=== PATIENT | male | born 1935 | race Two or more races ===

== ENCOUNTER 2020-02-01 06:14 | Emergency (ER) | payer MEDICARE, OTHER ==
[~2020-02-01] VITALS: Ht 170.2 cm; Wt 69.9 kg
--- NOTE | 2020-02-01 06:17 | NUR ---
PT BIB [facility] FROM THE [facility] WITH A C/O LT ELBOW LACERATION S/P TRIP AND FALL. PT DOESN'T REMEMBER WHAT HAPPENED, BUT STATED THAT HE TRIPPED AND FELL. PT HAS APPROX 4.5"/10CM LACERATION ON THE LT ELBOW. SLIGHT BLEEDING NOTED. AREA WRAPPED WITH GAUZE BY RESCUE. PT DOES NOT APPEAR TO HAVE HIT HIS HEAD. DR GREEN IS AT THE BEDSIDE. PT WAS PLACED ON THE MONITOR AND POX.
[2020-02-01] MEDS ORDERED: LIDOCAINE HCL/MPF 1% 30 ML VIAL IJ ONE (06:23)
[2020-02-01] MEDS ORDERED: LIDOCAINE 1%-EPI 1:100,000 20 ML VIAL ONE (06:26)
[2020-02-01] MEDS ORDERED: TDAP [DIPH/PERTUSSIS/TET] 0.5 ML VIAL IM ONE (06:27)
[2020-02-01] MEDS: LIDOCAINE 1%-EPI 1:100,000 50 ML VIAL IJ ONE (06:27)
[2020-02-01] MEDS: TDAP [DIPH/PERTUSSIS/TET] 0.5 ML VIAL IM ONE (06:30)
--- NOTE | 2020-02-01 06:32 | NUR ---
DR GREEN IS AT THE BEDSIDE NUMBING THE AREA/ PREP FOR SUTURING PT'S LACERATION.
--- NOTE | 2020-02-01 06:36 | NUR ---
DR GREEN IS AT THE BEDSIDE SUTURING THE PT'S LACERATION.
--- NOTE | 2020-02-01 06:42 | NUR ---
PIG STICKER IS AT THE BEDSIDE WAITING TO TAKE THE PT.
--- NOTE | 2020-02-01 07:04 | NUR ---
PT REC'D APPROX 13 SUTURES. ELBOW IS BEING WRAPPED WITH PETROLEUM GAUZE AND KERLEX. BACITRACIN APPLIED PRIOR TO WRAP. PT NEEDED TO USE THE URINAL. PALMA, EMT, IS AT THE BEDSIDE AND IS ASSISTING PT WITH THE URINAL. PT TO GO TO CT. RADIATION ONCOLOGY THERAPIST IS AT THE BEDSIDE.
--- NOTE | 2020-02-01 07:09 | NUR ---
PT LEFT FOR CT VIA [facility]
--- NOTE | 2020-02-01 07:34 | NUR ---
PAGED ORTHO ([employer])
--- NOTE | 2020-02-01 08:52 | NUR ---
CALLED [facility] FOR TRANSPORT TO [facility] [place]. ETA 1100.
--- NOTE | 2020-02-01 09:58 | NUR ---
patient asleep in bed, connected to the monitor and pulse ox. Sitter at bedside
[2020-02-01 10:33] VITALS: BP 146/79
--- NOTE | 2020-02-01 10:33 | NUR ---
patient picked up by private ambulance in no distress, no facial grimace noted. Patient going back to [facility].
== END 2020-02-01 10:33 ==
LOC: ER 06:16
DX: S42.492A Other displaced fracture of lower end of left humerus, initial encounter for closed fracture (principal); S51.012A Laceration without foreign body of left elbow, initial encounter; F03.90 Unspecified dementia, unspecified severity, without behavioral disturbance, psychotic disturbance, mood disturbance, and anxiety; W18.39XA Other fall on same level, initial encounter; Y93.89 Activity, other specified; Y92.89 Other specified places as the place of occurrence of the external cause; Y99.8 Other external cause status
CPT/HCPCS: 12004; 29105; 70450; 71045; 72125; 73080; 90471; 90715; 99285; A6403; J3490 ×2